=== PATIENT | female | born 1990 | race Hispanic/Latino ===

== ENCOUNTER 2018-06-30 02:21 | Emergency (ER) | payer SELFPAY ==
[2018-06-30 03:00] LABS: #Eosinphils 0.1 thou/uL (0.0-0.7); #Lymphocytes 1.5 thou/uL (1.20-3.40); #Monocytes 0.4 thou/uL (0.11-0.59); #Neutrophils 6.3 thou/uL (1.40-6.50); %Basophils 0.2 % (0.0-1.0); %Eosinophils 1.2 % (0.0-10.0); %Lymphocytes 17.9 % (21.0-51.0); %Monocytes 4.9 % (0.0-10.0); %Neutrophils 75.7 % (42.0-75.0); Hemoglobin 13.6 g/dL (12.0-16.0); Mean Corpuscular HGB CONC 35.9 g/dL (32.0-36.0); Mean Corpuscular Hemoglobin 31.1 pg (27.0-31.0); Mean Corpuscular Volume 86.8 fL (78.0-98.0); Mean Platelet Volume 9.7 fL (7.4-10.4); Platelet Count 217 thou/uL (130-400); RBC Distribution Width 11.8 % (11.5-14.5); Red Blood Cell (RBC) Count 4.36 mill/uL (4.20-5.40); White Blood Cell (WBC) Count 8.3 thou/uL (4.8-10.8)
[2018-06-30] MEDS ORDERED: Ondansetron HCl/PF 4 MG/2 ML Vial ONE (03:11)
[2018-06-30] MEDS ORDERED: Pantoprazole 40 MG VIAL ONE (03:12)
[2018-06-30 03:20] LABS: Bilirubin Negative (Negative); Blood, Urine Negative (Negative); Clarity CLEAR (Clear); Glucose, Urine (Dipstick) Negative (Negative); Leukocyte Negative (Negative); Nitrite Positive (Negative); Protein, Urine (Dipstick) Negative (Neg-Trace); Specific Gravity, Urine 1.017 (1.002-1.036); Urobilinogen 0.2 mg/dL (0.2-1.0)
[2018-06-30 03:21] LABS: ALT (SGPT) 44 U/L (8-55); AST (SGOT) 41 U/L (5-34); Albumin 4.5 g/dL (3.5-5.0); Alkaline Phosphatase 57 U/L (40-150); Anion Gap 20 mmol/L (10-20); BUN (Urea Nitrogen) 10 mg/dL (7.0-18.7); Bilirubin, Total 0.3 mg/dL (0.2-1.2); Calc. Creatinine Clearance 0 mL/min (70-130); Calcium 9.5 mg/dL (7.8-10.44); Carbon Dioxide 15 mmol/L (22-29); Chloride 102 mmol/L (98-107); Estimated GFR-MDRD Greater than 90; Globulin 4.3 g/dL (2.4-3.5); Glucose 123 mg/dL (70-105); Lipase 54 U/L (8-78); Protein, Total 8.8 g/dL (6.0-8.3); Sodium 133 mmol/L (136-145)
[2018-06-30 03:21] LABS: Pregnancy Test - Urine (BHCG) Negative (Negative); Pregu Control Background? CLEAR/WHITE (CLR/WHITE); Pregu Control Bar Appear? YES (CONTROL BAR); Specific Gravity 1.017 (1.002-1.036)
[2018-06-30 03:23] LABS: Hyaline Casts/LPF 0-3 HYALINE CAST LPF (0-3 Hyaline); RBC/HPF 0-3 HPF (0-3); Squamous Epithelial 0-3 HPF (0-3); WBC/HPF 0-3 HPF (0-3)
[2018-06-30] MEDS ORDERED: Mag-Al 1200 mg/1200 mg/30 ML UDCUP ONE (03:28)
[2018-06-30] MEDS ORDERED: Lidocaine Viscous Sol 2% 15 ml UD Cup ONE (03:28)
[2018-06-30 05:41] LABS: Bacteria/HPF 1+ HPF (None Seen)
== END 2018-06-30 04:22 | disposition home or self-care (01) ==
LOC: ERS 02:21
DX: K21.9 Gastro-esophageal reflux disease without esophagitis (principal); E03.9 Hypothyroidism, unspecified; E11.9 Type 2 diabetes mellitus without complications; Z79.899 Other long term (current) drug therapy; Z79.84 Long term (current) use of oral hypoglycemic drugs
CPT/HCPCS: 80053; 81003; 81015; 81025; 83690; 85025; 96374; 96375; C9113; J2405

== ENCOUNTER 2019-11-11 02:41 | Emergency (ER) | payer OTHER ==
[2019-11-11 03:10] LABS: #Basophils 0.1 thou/uL (0.0-0.2); #Eosinphils 0.2 thou/uL (0.0-0.7); #Lymphocytes 2.8 thou/uL (1.20-3.40); #Neutrophils 7.5 thou/uL (1.40-6.50); %Eosinophils 1.5 % (0.0-10.0); %Lymphocytes 23.9 % (21.0-51.0); %Neutrophils 64.7 % (42.0-75.0); Hemoglobin 13.2 g/dL (12.0-16.0); Mean Corpuscular HGB CONC 35.3 g/dL (32.0-36.0); Mean Corpuscular Hemoglobin 31.3 pg (27.0-31.0); Mean Corpuscular Volume 88.6 fL (78.0-98.0); Mean Platelet Volume 9.5 fL (7.4-10.4); Platelet Count 211 thou/uL (130-400); RBC Distribution Width 12.1 % (11.5-14.5); Red Blood Cell (RBC) Count 4.23 mill/uL (4.20-5.40); White Blood Cell (WBC) Count 11.6 thou/uL (4.8-10.8)
[2019-11-11 04:16] LABS: Bacteria/HPF None Seen HPF (None Seen); Bilirubin Negative (Negative); Blood, Urine 2+ (Negative); Clarity Clear (Clear); Glucose, Urine (Dipstick) Normal (Negative); Leukocyte Negative Leu/uL (Negative); Nitrite 2+ (Negative); Protein, Urine (Dipstick) Negative (Neg-Trace); Squamous Epithelial None Seen HPF (0-3); Urobilinogen Normal mg/dL (Less than 2); WBC/HPF 0-3 HPF (0-3)
--- NOTE | 2019-11-11 08:20 | ULT ---
PRELIMINARY REPORT/[facility]/EMERGENCY AFTER HOURS PROCEDURE: EXAM: US Obstetrical, Complete <14 weeks CLINICAL HISTORY: Pelvic cramping pain, vaginal spotting tonight TECHNIQUE: Transabdominal imaging of the maternal pelvis and a <14 week gestation with image document ation. COMPARISON: None provided. FINDINGS: GESTATION: CRL of 2.08 cm corresponds to 8 weeks 5 days with a heartbeat of 180 bpm however a s mall subchorionic hemorrhage is identified on the RIGHT side measuring 2.3 x 0.8 cm UTERUS: Unremarkable. No myometrial mass. Measures 10.7 x 5.2 x 7.3 cm CERVIX: Closed. Unremarkable. OVARIES: Unremarkable. No mass. The RIGHT ovary measures 3.3 x 2.0 cm and the LEFT ovary measures 2. 3 x 2.2 cm FREE FLUID: No free fluid. IMPRESSION: Single viable intrauterine . Small right-sided subchorionic hemorrhage. ELECTRONICALLY SIGNED BY: Zac Pisano MD Nov 11, 2019 3:59:43 AM [facility] FINAL REPORT TRANSABDOMINAL PELVIC ULTRASOUND: HISTORY: Cramping. Spotting. patient. TECHNIQUE: Transabdominal imaging of the pelvis is performed. Ovaries are interrogated with grayscale, color anisa w, Doppler imaging and spectral waveform analysis FINDINGS: Uterus is identified, measuring 10.8 x 5.3 x 7.4 cm. Within the endometrium there is a gestational sac, yolk sac and pole. 2.1 cm crown-rump length, corresponding to a gestational age of 8 weeks 5 days. There is a subchorionic hemorrhage measuring 2.4 x 0.9 x 0.7 cm. heart tones with a rate of 180 bpm. Appropriate echotexture of the ovaries. No free fluid. Ovarian Doppler demonstrates vascular flow to both ovaries. IMPRESSION: This report is in agreement with the initial report by [facility]. Single intrauterine gestatio n with heart tones. There is a subchorionic hemorrhage. Transcribed Date/Time: 11/11/2019 8:28 AM
== END 2019-11-11 04:33 | disposition home or self-care (01) ==
LOC: ERS 02:41
DX: O20.8 Other hemorrhage in early pregnancy (principal); O99.281 Endocrine, nutritional and metabolic diseases complicating pregnancy, first trimester; E03.9 Hypothyroidism, unspecified; O99.611 Diseases of the digestive system complicating pregnancy, first trimester; K21.9 Gastro-esophageal reflux disease without esophagitis; Z79.899 Other long term (current) drug therapy; Z3A.08 8 weeks gestation of pregnancy
CPT/HCPCS: 36415; 76856; 81003; 81015; 84702; 85025; 86900; 86901; 93976

== ENCOUNTER 2020-05-30 21:32 | Day surgery (SDC) | payer OTHER ==
[2020-05-30] MEDS ORDERED: hydrALAZINE 20 MG/ML VIAL SLOW IVP PRN (22:24)
[2020-05-30 22:57] VITALS: BMI 30.7
--- NOTE | 2020-05-31 15:48 | SS ---
DATE OF ADMISSION: 05/30/2020 DATE OF DISCHARGE: 05/30/2020 REGULAR PHYSICIAN: Steve Hills DO, MS EVALUATING PHYSICIAN: Baldomero Sanders MD CHIEF COMPLAINT: Lower abdominal discomfort. HISTORY OF PRESENT ILLNESS: Ms. Joy is a 29-year-old G2, P1, with an estimated date of confinement of 06/20/2020, who presents complaining of lower abdominal pain, with what she thinks are intermittent contractions. She denies associated loss of fluid, vaginal bleeding, or discharge. Her care has been with Dr. Hills and is reportedly uncomplicated. PAST OBSTETRICAL HISTORY: Includes one vaginal delivery at term. PAST MEDICAL HISTORY: Hypothyroidism. PAST SURGICAL HISTORY: Laparoscopic ovarian cyst removal. CURRENT MEDICATIONS: vitamins and Synthroid at an unknown dose. ALLERGIES: NO KNOWN ALLERGIES. SOCIAL HISTORY: Denies tobacco, alcohol, or drug use. FAMILY HISTORY: Unremarkable. REVIEW OF SYSTEMS: Denies nausea, vomiting, fever, chills, ruptured membranes, or vaginal bleeding. PHYSICAL EXAMINATION: VITAL SIGNS: Blood pressure is 134/77. She is afebrile. GENERAL: She is pleasant and in no distress. ABDOMEN: Soft, nontender, and gravid. Pelvic examination by the labor nurse shows the cervix to be 2, 50% effaced with the vertex high at the -2, -3 position. heart rate tracing is stable. No decelerations were seen. Intermittent contractions are noted. ASSESSMENT: 1. Thirty-seven week intrauterine . 2. No evidence of active labor at this time. PLAN: Labor precautions were reviewed with her in detail. She was told to hydrate herself well at home and that she could take either Tylenol or Benadryl to help her rest. She voiced understanding of her discharge instructions and states that she has an appointment with Dr. Hills in the morning at [facility]. Job ID: [id number]
== END 2020-05-30 22:35 | disposition home or self-care (01) ==
LOC: L&D/OP 21:32
PROVIDERS: ATTEND Obstetrics & Gynecology
DX: O99.89 Other specified diseases and conditions complicating pregnancy, childbirth and the puerperium (principal); R10.30 Lower abdominal pain, unspecified; O99.283 Endocrine, nutritional and metabolic diseases complicating pregnancy, third trimester; E03.9 Hypothyroidism, unspecified; Z3A.37 37 weeks gestation of pregnancy; Z79.899 Other long term (current) drug therapy
CPT/HCPCS: 99282

== ENCOUNTER 2020-06-07 07:56 | Day surgery (SDC) | payer OTHER ==
[2020-06-07] MEDS ORDERED: hydrALAZINE 20 MG/ML VIAL SLOW IVP PRN ×2 (08:49→09:05)
--- NOTE | 2020-06-07 09:27 | PRG ---
DATE OF SERVICE: 06/07/2020 TIME OF SERVICE: 0830 hours. SUBJECTIVE: Rufino is a 29-year-old, 2, para 1, EDC of 06/20 placing her at 38 weeks. She complains of some increased discharge, small amount of bleeding postcoital. She is scheduled for a visit with Dr. Hills this morning. She denies rupture of membranes. Reports an active fetus. HR RECRUITER HISTORY: x1. Group B negative. HIV negative. O positive, antibody negative. Rubella immune, VDRL nonreactive. PAST MEDICAL HISTORY: None. PAST SURGICAL HISTORY: HSG and ovarian cysts. ALLERGIES: DENIES. MEDICATIONS: vitamins. SOCIAL HISTORY: Denies tobacco, alcohol, or IV drug use. FAMILY HISTORY: Noncontributory. REVIEW OF SYSTEMS: Noncontributory. PHYSICAL EXAMINATION: GENERAL: female, in no acute distress. VITAL SIGNS: Temperature 98.5, respirations 18, pulse 85, and blood pressure 118/72. HEENT: Within normal limits. LUNGS: Clear to auscultation bilaterally. HEART: Regular rate and rhythm. ABDOMEN: Soft and nontender. No rebound or guarding. Fundal height 38. FHTs 140s. Vulva without lesions. Vaginal discharge. Cervix 3, 50, -2, cephalic by RN exam, unchanged from previous exam done at office. monitoring carried out, revealed irregular contractions q.5 to 15 minutes. No evidence of active labor. Category 1 heart rate tracing with no decelerations. IMPRESSION: Prodromal labor. No evidence of active labor at 38 weeks' gestation. PLAN: Discharge home. Keep scheduled followup with Dr. Hills. Job ID: [id number]
== END 2020-06-07 08:50 | disposition home or self-care (01) ==
LOC: L&D/OP 07:56
PROVIDERS: ATTEND Obstetrics & Gynecology
DX: O47.1 False labor at or after 37 completed weeks of gestation (principal); Z3A.38 38 weeks gestation of pregnancy; Z79.899 Other long term (current) drug therapy
CPT/HCPCS: 99282

== ENCOUNTER 2020-06-07 11:07 | Inpatient (IN) | payer OTHER ==
[2020-06-07 11:39] VITALS: BMI 32.0
[2020-06-07] MEDS ORDERED: HYDROcodone/Acetaminophen 5/325 mg Tablet PO PRN ×4 (12:03→18:56)
[2020-06-07] MEDS ORDERED: Butorphanol Tartrate 1 MG/ML VIAL SLOW IVP PRN (12:03)
[2020-06-07] MEDS ORDERED: Promethazine HCl 25 MG/ML VIAL IM PRN (12:03)
[2020-06-07] MEDS ORDERED: Lidocaine 1% (PF) 30 ML VIAL SC PRN (12:03)
[2020-06-07] MEDS ORDERED: hydrALAZINE 20 MG/ML VIAL SLOW IVP PRN ×2 (12:03→18:56)
[2020-06-07] MEDS ORDERED: NS / Oxytocin 40 units/1000ml 1,000 ML IV PRN (12:03)
[2020-06-07] MEDS ORDERED: Ibuprofen 800 MG TAB PO PRN (12:03)
[2020-06-07] MEDS ORDERED: Ondansetron PF 4 MG/2 ML Vial IVP PRN (12:03)
[2020-06-07 12:11] LABS: Hemoglobin 13.9 g/dL (12.0-16.0); Mean Corpuscular HGB CONC 34.7 g/dL (32.0-36.0); Mean Corpuscular Hemoglobin 31.3 pg (27.0-31.0); Mean Corpuscular Volume 90.3 fL (78.0-98.0); Mean Platelet Volume 11.1 fL (7.4-10.4); Platelet Count 135 thou/uL (130-400); Red Blood Cell (RBC) Count 4.43 mill/uL (4.20-5.40); White Blood Cell (WBC) Count 8.6 thou/uL (4.8-10.8)
[2020-06-07] MEDS ORDERED: NS w/ Oxytocin 10 units 500 ML IV SCH ×2 (12:15)
[2020-06-07] MEDS ORDERED: Lactated Ringer's 1,000 ML IV SCH (12:15)
[2020-06-07 12:57] LABS: Syphilis Antibody Nonreactive (Nonreactive); Syphilis Antibody Index 0.04 S/CO (<1.00 Non-Reactive)
[2020-06-07 13:22] LABS: HBSAg Index 0.27 S/CO (0-0.99); Hep B Surf Ag Non-Reactive S/CO (NonReactive)
[2020-06-07] MEDS ORDERED: Lidocaine 1% (PF) 30 ML VIAL ONE (16:37)
[2020-06-07] MEDS ORDERED: NS / Oxytocin 40 units/1000ml 1,000 ML ONE (16:37)
--- NOTE | 2020-06-07 17:12 | PDOC.OPDEL ---
OB Operative/Delivery Note Delivery Dr/Surgeon: Reinier Pre-Delivery Diagnosis: active labor Procedure/Post Delivery Dx: spontaneous vaginal delivery Weeks gestation: 38 Anesthesia: none - Findings A Sex: female - Additional Findings/Plan Placenta delivered: spontaneous Repaired Obstetrical Laceration: 1st degree Estimated blood loss: 225ml Compilations/Other Findings: nuchal x 1
[2020-06-07] MEDS ORDERED: Lanolin Ointment 7 GM TUBE TOP PRN (18:56)
[2020-06-07] MEDS ORDERED: NS / Oxytocin 40 units/1000ml 1,000 ML IV SCH (18:56)
[2020-06-07] MEDS ORDERED: Bisacodyl 10 MG SUPP PR PRN (18:56)
[2020-06-07] MEDS ORDERED: diphenhydrAMINE 25 MG CAP PO PRN (18:56)
[2020-06-07] MEDS ORDERED: Milk Of Magnesia 30 ML UDCUP PO PRN (18:56)
[2020-06-07] MEDS ORDERED: Benzocaine-Menthol 82.5 ML CAN TOP PRN (18:56)
[2020-06-07] MEDS: Docusate Calcium (SURFAK) 240 MG CAP PO SCH (22:12)
[2020-06-07] MEDS: Ibuprofen 800 MG TAB PO SCH (22:12)
[2020-06-08] MEDS: Ibuprofen 800 MG TAB PO SCH ×3 (05:32→22:03)
--- NOTE | 2020-06-08 07:59 | PDOC.PP ---
Post Progress Note Post Day #: 1 Subjective: doing well, only concern is baby grunting/spitting up fluid PO intake tolerated: yes Flatus: yes Ambulation: yes Vital Signs (12 hours) Temp Pulse Resp BP Pulse Ox 06/08/20 07:47 98.1 F 75 20 122/70 98 06/08/20 00:35 98.9 F 80 17 112/66 06/07/20 20:00 98.0 F 94 18 120/63 98 Weight Weight 175 lb - Physical Examination General: NAD Respiratory: non-labored breathing Abdominal: no distention Fundus firm & at: below umb Psychiatric: A&Ox3, normal affect Result Diagrams: 06/07/20 11:57 Additional Labs: Post Labs Hep Bs Antigen Non-Reactive S/CO (NonReactive) 06/07/20 11:57 Blood Type O POSITIVE 06/07/20 11:57 - Assessment/Plan A/P: PPD 1 sp yesterday at 38 weeks following onset of labor. Doing well, nursery coming to eval baby. DC tomorrow anticipated.
[2020-06-08] MEDS ORDERED: Adacel (T-DAP) 0.5 ML SYRINGE IM ONE (09:00)
[2020-06-08] MEDS: Prenatal Vitamin 1 TAB PO SCH (09:43)
[2020-06-08] MEDS: Docusate Calcium (SURFAK) 240 MG CAP PO SCH ×2 (09:44→22:03)
[2020-06-08] MEDS: Ferrous Sulfate 325 MG TAB PO SCH ×2 (09:44→15:31)
[2020-06-08 12:47] LABS: SARS-CoV-2 MS2 Positive; SARS-CoV-2 N Gene Negative; SARS-CoV-2 S Gene Negative; SARS-CoV-2 by NAA Not Detected (NotDetected); SARS-CoV-2 orf1ab Negative
--- NOTE | 2020-06-09 06:24 | PDOC.PP ---
Post Progress Note Post Day #: PPD2 Subjective: Doing well, no c/o. PO intake tolerated: yes Flatus: yes Ambulation: yes Weight Weight 79.379 kg - Physical Examination General: NAD Respiratory: non-labored breathing Neurological: no gross focal deficits Psychiatric: normal affect Result Diagrams: 06/07/20 11:57 Additional Labs: Post Labs Hep Bs Antigen Non-Reactive S/CO (NonReactive) 06/07/20 11:57 Blood Type O POSITIVE 06/07/20 11:57 - Assessment/Plan Doing well. DC home with precautions. RTC [address] Hills
[2020-06-09] MEDS: Ibuprofen 800 MG TAB PO SCH ×2 (06:27→14:14)
[2020-06-09] MEDS: Ferrous Sulfate 325 MG TAB PO SCH (08:21)
[2020-06-09] MEDS: Docusate Calcium (SURFAK) 240 MG CAP PO SCH (08:26)
[2020-06-09] MEDS: Prenatal Vitamin 1 TAB PO SCH (08:26)
[2020-06-09 08:34] VITALS: BP 105/64; TEMP 98.3
== END 2020-06-09 16:45 | disposition home or self-care (01) | DRG 807 ==
LOC: L&D 11:07 → 3SW 19:51
PROVIDERS: ADMIT Obstetrics & Gynecology; ATTEND Obstetrics & Gynecology
PROC: 10E0XZZ Delivery of Products of Conception, External Approach (ICD-10-PCS; principal; 2020-06-07)
PROC: 10907ZC Drainage of Amniotic Fluid, Therapeutic from Products of Conception, Via Natural or Artificial Opening (ICD-10-PCS; 2020-06-07)
PROC: 0HQ9XZZ Repair Perineum Skin, External Approach (ICD-10-PCS; 2020-06-07)
DX: O69.81X0 Labor and delivery complicated by cord around neck, without compression, not applicable or unspecified (principal); Z37.0 Single live birth; Z3A.38 38 weeks gestation of pregnancy; O70.0 First degree perineal laceration during delivery; Z20.828 Contact with and (suspected) exposure to other viral communicable diseases
CPT/HCPCS: 85027; 86780; 86850; 86900; 86901; 87340; 87635; J0595; J2001; U0003

== ENCOUNTER 2021-12-26 22:34 | Emergency (ER) | payer OTHER ==
[2021-12-26] MEDS ORDERED: Lidocaine Viscous Sol 2% 15 ml UD Cup ONE (23:29)
[2021-12-26] MEDS ORDERED: Mag-Al 1200 mg/1200 mg/30 ML UDCUP ONE (23:29)
[2021-12-26 23:45] LABS: #Eosinphils 0.1 thou/uL (0.0-0.7); #Lymphocytes 2.5 thou/uL (1.20-3.40); #Monocytes 0.5 thou/uL (0.11-0.59); %Basophils 0.4 % (0.0-1.0); %Eosinophils 1.5 % (0.0-10.0); %Lymphocytes 30.8 % (21.0-51.0); %Monocytes 6.5 % (0.0-10.0); %Neutrophils 60.7 % (42.0-75.0); Mean Corpuscular HGB CONC 32.9 g/dL (32.0-36.0); Mean Corpuscular Hemoglobin 30.4 pg (27.0-31.0); Mean Corpuscular Volume 92.3 fL (78.0-98.0); Mean Platelet Volume 9.9 fL (7.4-10.4); Platelet Count 140 thou/uL (130-400); RBC Distribution Width 12.3 % (11.5-14.5); White Blood Cell (WBC) Count 8.2 thou/uL (4.8-10.8)
[2021-12-27 00:05] LABS: ALT (SGPT) 48 U/L (8-55); AST (SGOT) 32 U/L (5-34); Albumin 4.4 g/dL (3.5-5.0); Alkaline Phosphatase 96 U/L (40-110); Anion Gap 12 mmol/L (10-20); BUN (Urea Nitrogen) 15 mg/dL (7.0-18.7); Bilirubin, Total 0.5 mg/dL (0.2-1.2); Calc. Creatinine Clearance 0 mL/min (70-130); Calcium 8.8 mg/dL (7.8-10.44); Carbon Dioxide 22 mmol/L (22-29); Chloride 108 mmol/L (98-107); Globulin 3.2 g/dL (2.4-3.5); Glucose 104 mg/dL (70-105); Lipase 58 U/L (8-78); Potassium 3.4 mmol/L (3.5-5.1); Protein, Total 7.6 g/dL (6.0-8.3); Sodium 139 mmol/L (136-145)
[2021-12-27 00:12] LABS: Bacteria/HPF None Seen HPF (None Seen); Bilirubin Negative (Negative); Blood, Urine Negative (Negative); Clarity Clear (Clear); Glucose, Urine (Dipstick) Normal (Negative); Ketone, Urine Negative (Negative); Leukocyte 250 Leu/uL (Negative); Nitrite Negative (Negative); Protein, Urine (Dipstick) 20 mg/dL (Neg-Trace); RBC/HPF 0-3 HPF (0-3); Specific Gravity, Urine 1.036 (1.002-1.036); Squamous Epithelial 0-3 HPF (0-3); Urobilinogen Normal mg/dL (Less than 2)
== END 2021-12-27 00:54 | disposition home or self-care (01) ==
LOC: ERS 22:34
DX: R10.13 Epigastric pain (principal); K21.9 Gastro-esophageal reflux disease without esophagitis
CPT/HCPCS: 36415; 80053; 81003; 81015; 83690; 85025; 93005